=== PATIENT | male | born 1955 | race Caucasian/White ===

== ENCOUNTER 2019-04-22 07:45 | Day surgery (SDC) | payer BC ==
[2019-04-17 15:09] VITALS: BMI 31.5
[~2019-04-22 07:45] MED LIST: LACTATED RINGERS 1,000 ML IV SCH; LIDOCAINE 1% 20 ML VIAL (10MG/ML) FOR IV START INTRADERMA PRN
[2019-04-22 08:23] VITALS: TEMP 99.7
[2019-04-22] MEDS ORDERED: LIDOCAINE 1% INJ 10MG/ML (20 ML MDV) ONE (08:41)
[2019-04-22] MEDS ORDERED: PROPOFOL 10 MG/ML 20 ML VIAL IV ONE (08:41)
--- NOTE | 2019-04-22 08:43 | P.GSHP ---
History of Present Illness H&P Date: 04/22/19 Chief Complaint: Screening colonoscopy This is a 64-year-old male who presents today for screening colonoscopy. Patient denies any significant GI complaints. Past Medical History Past Medical History: Hyperlipidemia, Hypertension History of Any Multi-Drug Resistant Organisms: None Reported Additional Past Surgical History / Comment(s): COLONOSCOPY Past Anesthesia/Blood Transfusion Reactions: No Reported Reaction Smoking Status: Current every day smoker - Past Family History Mother Family Medical History: No Reported History Medications and Allergies Home Medications Medication Instructions Recorded Confirmed Type Cyclobenzaprine [Flexeril] 10 mg PO TID 04/17/19 04/22/19 History HYDROcodone/APAP 5-325MG [[place] 1 tab PO Q6HR PRN 04/17/19 04/22/19 History 5-325] Meloxicam [Mobic] 15 mg PO DAILY 04/17/19 04/22/19 History Multivitamins, Thera [Multivitamin 1 tab PO DAILY 04/17/19 04/22/19 History (formulary)] Rosuvastatin [Crestor] 10 mg PO DAILY 04/17/19 04/22/19 History amLODIPine BESYLATE/BENAZEPRIL 1 cap PO DAILY 04/17/19 04/22/19 History [Lotrel 5-10 MG] Allergies Allergy/AdvReac Type Severity Reaction Status Date / Time Penicillins Allergy Rash/Hives Verified 04/22/19 08:19 Surgical - Exam Vital Signs Temp Pulse Resp BP Pulse Ox 99.7 F H 82 20 150/91 96 04/22/19 08:21 04/22/19 08:21 04/22/19 08:21 04/22/19 08:21 04/22/19 08:21 - General well developed, well nourished, no distress - Eyes PERRL - ENT normal pinna - Neck no masses - Respiratory normal expansion - Cardiovascular Rhythm: regular - Abdomen Abdomen: soft, non tender Assessment and Plan Assessment: We'll perform screening colonoscopy
--- NOTE | 2019-04-22 08:54 | P.OP ---
Date of Procedure: 04/22/19 Preoperative Diagnosis: Screening colonoscopy Postoperative Diagnosis: External hemorrhoids Rectal polyp Procedure(s) Performed: Colonoscopy Anesthesia: MAC Surgeon: Jonh Mujica Pathology: other (Rectal polyp) Condition: stable Disposition: PACU Description of Procedure: The patient's placed on the endoscopy table in the lateral position. He received IV sedation. Digital rectal exam was performed which revealed external hemorrhoids. Flexible colonoscope was then placed patient anus and passed throughout the entire colon. The ileocecal valve visualized. The cecum, ascending and transverse colon appeared normal. In the descending and sigmoid colon there is mild diverticular changes. Scope was then brought back the rectum and a small sessile polyp was visualized. This was removed with the cold forcep. Scope was withdrawn for patient.
[2019-04-22 09:00] VITALS: RESP 18
[2019-04-22 09:43] VITALS: BP 147/98; PULSE 83
== END 2019-04-22 09:52 | disposition home or self-care (01) ==
LOC: ORWHC2ENDO 07:45
PROVIDERS: ATTEND Surgery
DX: Z12.11 Encounter for screening for malignant neoplasm of colon (principal); K62.1 Rectal polyp; K64.4 Residual hemorrhoidal skin tags; K57.30 Diverticulosis of large intestine without perforation or abscess without bleeding; E78.5 Hyperlipidemia, unspecified; I10 Essential (primary) hypertension; F17.210 Nicotine dependence, cigarettes, uncomplicated; Z97.2 Presence of dental prosthetic device (complete) (partial); Z79.1 Long term (current) use of non-steroidal anti-inflammatories (NSAID); Z79.899 Other long term (current) drug therapy; Z88.0 Allergy status to penicillin
CPT/HCPCS: 88305; 45380; J2001; J2704